=== PATIENT | male | born 1975 | race Caucasian/White ===

== ENCOUNTER 2023-09-24 16:49 | Emergency (ER) | payer OTHER, BC ==
[2023-09-24 17:09] VITALS: RESP 20; TEMP 98.9; BMI 36.0
[2023-09-24 18:02] VITALS: BP 141/84; PULSE 76
[2023-09-24] MEDS ORDERED: LIDOCAINE 4% PATCH TP ONE ×2 (18:25→18:32)
[2023-09-24] MEDS ORDERED: KETOROLAC TROMETHAMINE 30 MG/1 ML VIAL IM ONE (18:25)
[2023-09-24] MEDS ORDERED: KETOROLAC TROMETHAMINE 30 MG/1 ML VIAL ONE (18:32)
[2023-09-24] MEDS ORDERED: LIDOCAINE PATCH REMOVAL MC SCH (22:00)
== END 2023-09-24 19:35 | disposition home or self-care (01) ==
LOC: JERFT 16:49 → JER 16:49 → JERFT 19:35
PROC: 3E0233Z Introduction of Anti-inflammatory into Muscle, Percutaneous Approach (ICD-10-PCS; principal; 2023-09-24)
DX: M54.50 Low back pain, unspecified (principal); M62.830 Muscle spasm of back
CPT/HCPCS: 72100-TC-FY; 99284-25